=== PATIENT | male | born 1950 | race Native Hawaiian/Other Pacific Islander ===

== ENCOUNTER 2017-12-15 12:45 | Outpatient (CLI) | payer OTHER | END 2017-12-15 12:53 | disposition short-term general hospital (02) | LOC: AMB 12:45 | DX: R55 Syncope and collapse (principal) | CPT/HCPCS: A0425; A0427 ==

== ENCOUNTER 2017-12-15 12:57 | Emergency (ER) | payer OTHER ==
[~2017-12-15] VITALS: Ht 180.3 cm; Wt 70.3 kg
[2017-12-15 13:26] LABS: PLATELET COUNT 206 K/uL (142-355)
[2017-12-15 14:00] LABS: POTASSIUM 3.4 mmol/L (3.6-5.2); SODIUM 136 mmol/L (136-145)
[2017-12-15 14:57] VITALS: BP 159/74; TEMP 98.2
== END 2017-12-15 15:05 | disposition home or self-care (01) ==
LOC: ED 12:57
DX: R55 Syncope and collapse (principal)
CPT/HCPCS: 80053; 82550; 84484; 85027; 93005; 96365; 99283; J3490

== ENCOUNTER 2018-03-11 22:51 | Emergency (ER) | payer OTHER ==
[~2018-03-11] VITALS: Ht 180.3 cm; Wt 68.0 kg
[2018-03-11] MEDS ORDERED: AMLODIPINE BESYLATE PO (23:03)
[2018-03-11] MEDS ORDERED: CARV12.5 PO (23:04)
[2018-03-12 00:33] VITALS: BP 178/79; TEMP 97.9
== END 2018-03-12 03:43 | disposition home or self-care (01) ==
LOC: ED 22:51 → EDBD 22:51 → ED 03-12 03:43
DX: S82.401A Unspecified fracture of shaft of right fibula, initial encounter for closed fracture (principal); I10 Essential (primary) hypertension; Z89.511 Acquired absence of right leg below knee; W19.XXXA Unspecified fall, initial encounter
CPT/HCPCS: 96372; 99283; J1885

== ENCOUNTER 2018-03-14 17:05 | Emergency (ER) | payer OTHER ==
[~2018-03-14] VITALS: Ht 180.3 cm; Wt 62.1 kg
[~2018-03-14 17:05] MED LIST: AMLODIPINE BESYLATE PO; CARV12.5 PO
[2018-03-14 17:21] VITALS: TEMP 97.9
[2018-03-14 17:51] LABS: PLATELET COUNT 254 K/uL (142-355)
[2018-03-14 18:02] LABS: POTASSIUM 4.5 mmol/L (3.6-5.2)
[2018-03-14 18:55] VITALS: BP 154/98
== END 2018-03-14 18:56 | disposition home or self-care (01) ==
LOC: ED 17:05
DX: R19.7 Diarrhea, unspecified (principal)
CPT/HCPCS: 36415; 74022; 80053; 85027; 96365; 99284

== ENCOUNTER 2018-06-14 17:48 | Emergency (ER) | payer OTHER ==
[~2018-06-14] VITALS: Ht 180.3 cm; Wt 63.5 kg
[2018-06-14] MEDS ORDERED: GABA300C2 PO (18:06)
[2018-06-14] MEDS ORDERED: LEVO250T2 PO (18:07)
[2018-06-14] MEDS ORDERED: RENVELA800 MG PO (18:07)
[2018-06-14] MEDS ORDERED: AMLODIPINE BESYLATE PO (18:08)
[2018-06-14] MEDS ORDERED: NIFE30TA PO (18:08)
[2018-06-14 20:11] VITALS: BP 173/95; TEMP 98.1
== END 2018-06-14 20:12 | disposition home or self-care (01) ==
LOC: ED 17:48
DX: R53.83 Other fatigue (principal); I95.89 Other hypotension; R53.81 Other malaise
CPT/HCPCS: 96360; 99284

== ENCOUNTER 2018-07-02 13:58 | Outpatient (CLI) | payer OTHER ==
[~2018-07-02 13:58] MED LIST changes: +GABA300C2 PO; +LEVO250T2 PO; +NIFE30TA PO; +RENVELA800 MG PO
== END 2018-07-02 21:44 | disposition home or self-care (01) ==
LOC: LAB 13:58
DX: D64.9 Anemia, unspecified (principal)
CPT/HCPCS: 85018

== ENCOUNTER 2018-11-05 15:08 | Outpatient (CLI) | payer OTHER ==
[2018-11-05] MEDS ORDERED: CARV25TA PO (15:34)
[2018-11-05] MEDS ORDERED: FIBER LAXATIV0.52 GM PO (15:35)
== END 2018-11-05 15:09 | disposition short-term general hospital (02) ==
LOC: AMB 15:08
DX: R53.83 Other fatigue (principal)
CPT/HCPCS: A0425; A0427

== ENCOUNTER 2018-11-05 15:12 | Emergency (ER) | payer OTHER ==
[~2018-11-05] VITALS: Ht 180.3 cm; Wt 68.7 kg
[2018-11-05 15:30] LABS: PLATELET COUNT 122 K/uL (142-355)
[2018-11-05] MEDS ORDERED: CARV25TA PO (15:34)
[2018-11-05] MEDS ORDERED: FIBER LAXATIV0.52 GM PO (15:35)
[2018-11-05 15:47] LABS: POTASSIUM 3.8 mmol/L (3.6-5.2)
[2018-11-05 18:00] VITALS: BP 147/77
== END 2018-11-05 18:00 | disposition short-term general hospital (02) ==
LOC: ED 15:12
PROVIDERS: Emergency Medicine
DX: J18.8 Other pneumonia, unspecified organism (principal); I21.29 ST elevation (STEMI) myocardial infarction involving other sites; N18.6 End stage renal disease; Z99.2 Dependence on renal dialysis
CPT/HCPCS: 36415; 36600; 80053; 82550; 82553; 82805; 83605; 83880; 84484; 85027; 87040; 93005; 96365; 99284; J1956

== ENCOUNTER 2018-11-05 18:03 | Outpatient (CLI) | payer OTHER ==
[~2018-11-05 18:03] MED LIST changes: +CARV25TA PO; +FIBER LAXATIV0.52 GM PO
== END 2018-11-05 19:38 | disposition short-term general hospital (02) ==
LOC: AMB 18:03
DX: J18.9 Pneumonia, unspecified organism (principal)
CPT/HCPCS: A0425; A0427

== ENCOUNTER 2018-12-08 14:36 | Outpatient (CLI) | payer OTHER | END 2018-12-08 20:04 | disposition home or self-care (01) | LOC: LAB 14:36 | DX: D64.9 Anemia, unspecified (principal) | CPT/HCPCS: 85014; 85018 ==

== ENCOUNTER 2018-12-15 14:44 | Outpatient (CLI) | payer OTHER | END 2018-12-15 20:08 | disposition home or self-care (01) | LOC: LAB 14:44 | DX: D64.9 Anemia, unspecified (principal) | CPT/HCPCS: 85014; 85018 ==